=== PATIENT | female | born 1985 | race Caucasian/White ===

== ENCOUNTER 2023-10-02 16:47 | Emergency (ER) | payer SELFPAY ==
[~2023-10-02] VITALS: Ht 167.6 cm; Wt 82.0 kg
[2023-10-02 16:49] VITALS: TEMP 98.2; O2SAT 100
[2023-10-02] MEDS: ONDANSETRON HCL 4MG/2ML INJ IV STA (18:19)
[2023-10-02] MEDS: SODIUM CHLORIDE 0.9% 1,000 ML IV ONE (18:19)
[2023-10-02] MEDS: FAMOTIDINE 20MG/2ML VIAL IV STA (18:19)
[2023-10-02 18:32] LABS: BASOPHILS % 0.5 % (0.0-2.0); EOSINOPHILS % 0.6 % (0.0-5.0); LYMPHOCYTES % 17.9 % (20.0-50.0); MEAN CORPUSCULAR HEMOGLOBIN 26.6 pg (28.0-32.0); MEAN CORPUSCULAR HGB CONC 32.3 g/dL (31.0-37.0); MEAN CORPUSCULAR VOLUME 82.3 fL (81.0-99.0); MEAN PLATELET VOLUME 8.6 fl (7.4-10.4); PLATELET 351 x1000/uL (130-400); RED BLOOD CELL COUNT 3.77 mill/uL (4.2-5.4); RED CELL DISTRIBUTION WIDTH 17.2 % (11.6-14.6); WHITE BLOOD COUNT 10.3 x1000/uL (4.5-11.0)
[2023-10-02 18:46] LABS: ALANINE AMINOTRANSFERASE 10 IU/L (10-49); ALBUMIN 4.4 g/dL (3.2-4.8); ASPARTATE AMINOTRANSFERASE 21 IU/L (<34); BILIRUBIN TOTAL 0.4 mg/dL (0.1-1.0); CARBON DIOXIDE 24 mEq/L (21-32); CHLORIDE 107 mEq/L (98-107); CREATININE 0.9 mg/dL (0.6-1.0); GLUCOSE 115 mg/dL (70-105); POTASSIUM 4.4 mEq/L (3.5-5.1); PROTEIN TOTAL 7.1 g/dL (6.0-8.3); SODIUM 139 mEq/L (136-145); UREA NITROGEN BLOOD 6 mg/dL (9-23)
[2023-10-02 18:53] LABS: HCG SCREEN NEGATIVE; PROTHROMBIN TIME 10.8 sec (9.6-11.0)
[2023-10-02 20:18] VITALS: BP 121/70; PULSE 71; RESP 15
== END 2023-10-02 20:20 | disposition home or self-care (01) ==
LOC: ER 16:47
DX: R10.13 Epigastric pain (principal)
CPT/HCPCS: 80053; 84703; 83690; 85025; 85610; 36415; 71045; 74176; 96361; 96374; 96375; 99285; J3490; J2405; J7030; Z7610